=== PATIENT | female | born 1965 | race Caucasian/White ===

== ENCOUNTER 2018-04-15 17:48 | Emergency (ER) | payer OTHER ==
[2018-04-15] MEDS: ACETAMINOPHEN 325 MG TAB PO (18:32)
== END 2018-04-15 20:40 | disposition home or self-care (01) ==
LOC: FTE 17:48
DX: S02.2XXA Fracture of nasal bones, initial encounter for closed fracture (principal); I10 Essential (primary) hypertension; W01.0XXA Fall on same level from slipping, tripping and stumbling without subsequent striking against object, initial encounter; Y92.9 Unspecified place or not applicable
CPT/HCPCS: 70450; 70486; 99284-25

== ENCOUNTER 2018-09-08 13:53 | Emergency (ER) | payer OTHER ==
[2018-09-08] MEDS: IBUPROFEN 800 MG TAB PO (15:27)
[2018-09-08] MEDS: LIDOCAINE 1% (MPF) 5 ML VIAL INJ (15:29)
[2018-09-08] MEDS: DIPHTH/TET/ACEL PERTUSS (ADULT) 0.5 ML VIAL IM* (15:34)
== END 2018-09-08 15:59 | disposition home or self-care (01) ==
LOC: FTE 13:53
DX: S61.215A Laceration without foreign body of left ring finger without damage to nail, initial encounter (principal); I10 Essential (primary) hypertension; W26.8XXA Contact with other sharp object(s), not elsewhere classified, initial encounter; Y92.9 Unspecified place or not applicable; Z23 Encounter for immunization
CPT/HCPCS: 12001; 90471; 90715; 99283-25